=== PATIENT | male | born 1955 | race African-American/Black ===

== ENCOUNTER 2019-08-02 17:48 | Day surgery (SDC) | payer SELFPAY ==
[2019-08-02] MEDS ORDERED: NA CIT/CITRIC AC 30 ML ORAL UDC ONE (18:41)
[2019-08-02] MEDS: Ringers Lactate 1,000 ML IV ONE ×2 (18:42→19:00)
--- NOTE | 2019-08-02 18:42 | ER ---
Nurse's Notes [facility] Name: Marcos Bryson Age: 63 yrs Sex: Male : 1955 Arrival Date: 08/02/2019 Time: 17:49 Bed 14 Private MD: Hiren Alejandra Diagnosis: Presentation: 08/02 18:01 Presenting complaint: Sent by Dr. Alejandra for penetrating ocular trauma and intraocular hb foreign body. Pt was working on bicycle, piece of metal flew into left eye, c/o pain 7/10. Transition of care: patient was not received from another setting of care. Onset of symptoms was August 02, 2019. Risk Assessment: Do you want to hurt yourself or someone else? Patient reports no desire to harm self or others. Initial Sepsis Screen: Does the patient meet any 2 criteria? No. Patient's initial sepsis screen is negative. Does the patient have a suspected source of infection? No. Patient's initial sepsis screen is negative. Care prior to arrival: None. 18:01 Method Of Arrival: Ambulatory hb 18:01 Acuity: HEMALATHA 2 hb Historical: - Allergies: 18:03 No Known Allergies; hb - Home Meds: 18:03 None [Active]; hb - PMHx: 18:03 None; hb - PSHx: 18:03 None; hb - Immunization history:: Adult Immunizations up to date. - Social history:: Smoking status: Patient uses tobacco products, smokes one pack cigarettes per day. - Ebola Screening: : No symptoms or risks identified at this time. Vital Signs: 18:03 BP 179 / 99; Pulse 71; Resp 16; Temp 97.8; Pulse Ox 100% on R/A; Weight 90.72 kg; hb Height 6 ft. (182.88 cm); Pain 7/10; 18:03 Body Mass Index 27.12 (90.72 kg, 182.88 cm) hb ED Course: 17:49 Patient arrived in ED. am2 17:49 Hiren Alejandra MD is Private Physician. am2 18:03 Triage completed. hb 18:03 Arm band placed on. hb 18:27 Dalton Jang PA is PHCP. cp 18:27 Michael Brooks MD is Attending Physician. cp 18:36 pt should not have been registered as an ER pt. but should have gone to the OR directly.dm5 18:39 Hiren Alejandra MD is Referral Physician. dm5 Administered Medications: No medications were administered Outcome: 18:40 Patient left the ED. dm5 Signatures: Ingrid Grider, RN RN dm5 Dalton Jang PA PA cp Baxter, Heather, RN RN Madhuri Rosales [facility]
[2019-08-02] MEDS ORDERED: FENTANYL CITR 100 MCG/2 ML ONE (18:43)
[2019-08-02] MEDS ORDERED: MIDAZOLAM HCL 2 MG/2 ML INJ ONE (18:43)
[2019-08-02] MEDS ORDERED: NS 0.9% VIAL 0 ML ONE (18:43)
[2019-08-02] MEDS ORDERED: PROPOFOL 200 MG/20 ML VIAL IV ONE (18:43)
[2019-08-02] MEDS ORDERED: BSS OPTHALMIC SOL 15 ML BOT OPTH ONE (18:43)
[2019-08-02] MEDS ORDERED: LIDOCAINE 1% MPF 5 ML VIAL ONE (18:44)
[2019-08-02] MEDS ORDERED: ONDANSETRON 4 MG/2 ML VIAL ONE (18:44)
[2019-08-02] MEDS ORDERED: TOBRADEX 0.3-0.1% OPTH OINTMENT ONE (18:44)
[2019-08-02] MEDS ORDERED: DUOVISC 1 KIT OPTH ONE (18:45)
[2019-08-02] MEDS ORDERED: POVIDONE-IODINE 5% EYE DROPS ONE (18:45)
[2019-08-02] MEDS ORDERED: HYALURONATE SODIUM 14 MG/ML SYR OPTH ONE (18:45)
[2019-08-02] MEDS ORDERED: CEFAZOLIN/SWI 1gm 1 GM/10 ML SYR ONE (18:54)
[2019-08-02] MEDS ORDERED: Gatifloxacin Ophth 0.5% (2.5 ML BTL) OPTH ONE (19:06)
[2019-08-02] MEDS ORDERED: MEPERIDINE HCL 25 MG/0.5 ML ONE (20:17)
[2019-08-02] MEDS ORDERED: HYDRALAZINE HCL 20 MG/ML VIAL ONE (20:34)
[2019-08-02] MEDS ORDERED: HYDROMORPHONE HCL 2 MG/ML inj ONE (20:59)
[2019-08-03 00:33] VITALS: O2SAT 99
[2019-08-03 00:35] VITALS: BP 179/83; TEMP 98.9
--- NOTE | 2019-08-03 05:58 | OP ---
Date of Procedure: 08/02/2019 Surgeon: Elder Alejandra MD Preoperative Diagnosis: Penetrating ocular trauma with intraocular metallic foreign body, left eye. Postoperative Diagnosis: Penetrating ocular trauma with intraocular metallic foreign body, left eye. Procedure Performed: Removal of intraocular foreign body. Description Of Procedure: After being properly identified in the preoperative holding, the patient w as taken back to the operating room where a time-out was performed. The patient was under general an esthesia and because of the penetrating nature of the trauma, I did the ocular prep myself using Beta dine paint and close attention not to put any extra pressure on the eye. Once the eye was prepped, I again placed the drain myself and incised it using a pair of Drape scissors. Examination of the eye underneath the operating microscope revealed a metallic foreign body, more specifically a metal francisca ment extending the entire length of the anterior chamber causing displacement of the iris as well as a small iris hole and just barely with a small piece of protrusion from the cornea. Initially using a multitude of forceps, the metal was attempted to be grasped from the external penetrating area in o rder to pull it from inside out to no avail. Using a 1.0 mm side-port blade to slightly denuded corn ea and attempt to give us more area of filament was grasped thereafter, but again to no avail. There after, a side-port blade was used to make an incision into the cornea and viscoelastic added into the anterior chamber. A 2.75 mm keratome was used to make a temporal incision and using a pair of force ps, the monofilament was grasped and threaded through the cornea, where it was thereafter grasped and pulled completely free. At this point, the iris returned to a more normal appearance with a nice ro und pupil. However, it was apparent that the iris was penetrated through and there was an iris defec t inferior temporally. It is possible that the lens was penetrated as well. However, no lens materi al was noted in the anterior chamber. However, it is possible that a cataract will develop shortly i f this was the case. The viscoelastic was irrigated out and the wound was hydrated, and a 10-0 nylon suture placed through the temporal incision wound. During the hydration, BSS was noted to escape fo rcibly through the penetration site resulting in a geyser like appearance and after consideration, a single 10-0 nylon suture was placed through this in order to help ensure water tightness. At the con clusion of the procedure, the pupil was round. The natural lens was clear with no evidence of any nu clear material present in the anterior chamber and the procedure concluded. The patient was taken to the postoperative holding in stable condition having tolerated the procedure well. There were no co mplications. Estimated blood loss was less than 1 mL. The metallic foreign body was not sent as a s pecimen and the patient is to follow up with myself, Dr. Elder Alejandra at the [facility] tomorrow morning, as I explained to the patient preoperatively given that he had a penetrating tra mady into the eye. The prognosis can be guarded. However, I am cautiously optimistic as the preopera tive vision was good and we did not encounter any significant complications during the procedure. ASHELY/ANTHONY Voice ID: [id number] Report ID: [id number]
== END 2019-08-02 22:28 | disposition home or self-care (01) ==
LOC: ER 17:48 → DS 18:31 → ER 18:40 → DS 18:40
PROVIDERS: ATTEND Ophthalmology
PROC: 08C Eye, Extirpation (ICD-10-PCS; principal; 2019-08-02 19:00)
DX: S05.52XA Penetrating wound with foreign body of left eyeball, initial encounter (principal); Y93.89 Activity, other specified; Y92.9 Unspecified place or not applicable; Y99.9 Unspecified external cause status; Z91.013 Allergy to seafood; I10 Essential (primary) hypertension; F17.210 Nicotine dependence, cigarettes, uncomplicated
CPT/HCPCS: 99281; J0360; J0690; J1170; J2175; J2250; J2405; J2704; J3010